=== PATIENT | male | born 2000 | race Caucasian/White ===

== ENCOUNTER 2022-04-28 18:03 | Observation (INO) | payer BC ==
[~2022-04-28 18:03] MED LIST: Iopamidol 300 61% 100 ML VIAL FS ONE
[2022-04-28] MEDS ORDERED: Morphine 4 MG/ML VIAL ONE (18:51)
[2022-04-28] MEDS ORDERED: Ondansetron PF 4 MG/2 ML Vial ONE (18:51)
[2022-04-28 18:53] LABS: #Eosinphils 0.1 10x3/uL (0.0-0.5); #Monocytes 0.4 10x3/uL (0.0-1.1); %Basophils 0.2 % (0.0-2.0); %Eosinophils 0.7 % (0.0-6.0); %Monocytes 2.2 % (0.0-10.0); %Neutrophils 91.6 % (40.0-75.0); Hemoglobin 16.8 g/dL (13.5-17.5); Mean Corpuscular Hemoglobin 30.2 pg (27.0-33.0); Mean Corpuscular Volume 83.8 fl (81.2-95.1); Mean Platelet Volume 9.5 fl (7.4-10.4); Platelet Count 239 10x3/uL (150-450); RBC Distribution Width 12.2 % (11.5-14.5); Red Blood Cell (RBC) Count 5.57 10x6/uL (4.32-5.72); White Blood Cell (WBC) Count 17.5 10x3/uL (3.5-10.5)
[2022-04-28 19:13] LABS: ALT (SGPT) 21 U/L (8-55); AST (SGOT) 16 U/L (10-45); Alkaline Phosphatase 60 U/L (50-130); Anion Gap 19 mmol/L (10-20); BUN (Urea Nitrogen) 19 mg/dL (8.4-21.0); Calc. Creatinine Clearance 0 mL/min (70-130); Calcium 10.7 mg/dL (7.8-10.44); Carbon Dioxide 24 mmol/L (22-29); Chloride 98 mmol/L (98-107); Estimated GFR 68; Globulin 3.1 g/dL (2.4-3.5); Glucose 110 mg/dL (70-105); Potassium 4.1 mmol/L (3.5-5.1); Protein, Total 8.1 g/dL (6.0-8.3); Sodium 137 mmol/L (136-145)
[2022-04-28 19:18] LABS: Bilirubin Neg (Negative); Blood, Urine 10 (Negative); Clarity Clear (Clear); Glucose, Urine (Dipstick) Normal (Negative); Ketone, Urine 5 mg/dL (Negative); Leukocyte 25 (Negative); Nitrite Positive (Negative); Protein, Urine (Dipstick) 30 mg/dl (Neg-Trace); Specific Gravity, Urine 1.025 (1.005-1.030); Urobilinogen Normal mg/dL (Less than 2)
[2022-04-28 19:45] LABS: Bacteria/HPF 3+ HPF (None Seen); Mucous/LPF 3+ LPF (<2+); RBC/HPF 0-3 HPF (0-3); Squamous Epithelial 0-3 HPF (0-3); WBC/HPF 0-3 HPF (0-3)
[2022-04-28] MEDS ORDERED: Piperacillin/Tazobactam 4.5 GM VIAL ONE (21:18)
[2022-04-28 22:03] LABS: SARS-CoV-2 NAA Rapid Test Not Detected (NotDetected)
[2022-04-29 01:20] VITALS: BMI 25.2
[2022-04-29] MEDS ORDERED: Morphine 4 MG/ML VIAL SLOW IVP PRN (02:05)
[2022-04-29] MEDS ORDERED: diphenhydrAMINE 50 MG/ML VIAL IVP PRN (02:05)
[2022-04-29] MEDS ORDERED: Ondansetron ODT 4 MG TAB SL PRN (02:15)
[2022-04-29] MEDS ORDERED: Sodium Chloride 0.9% 1,000 ML IV SCH (02:15)
[2022-04-29] MEDS ORDERED: Ondansetron PF 4 MG/2 ML Vial IVP PRN (02:15)
[2022-04-29 04:48] LABS: #Monocytes 0.3 10x3/uL (0.0-1.1); #Neutrophils 12.9 10x3/uL (1.5-8.4); %Basophils 0.2 % (0.0-2.0); %Eosinophils 0.2 % (0.0-6.0); %Lymphocytes 4.3 % (18.0-47.0); %Monocytes 2.4 % (0.0-10.0); %Neutrophils 92.5 % (40.0-75.0); Hemoglobin 14.7 g/dL (13.5-17.5); Mean Corpuscular HGB CONC 35.3 g/dL (32.0-36.0); Mean Corpuscular Hemoglobin 30.2 pg (27.0-33.0); Mean Corpuscular Volume 85.4 fl (81.2-95.1); Platelet Count 200 10x3/uL (150-450); RBC Distribution Width 12.3 % (11.5-14.5); Red Blood Cell (RBC) Count 4.87 10x6/uL (4.32-5.72); White Blood Cell (WBC) Count 13.9 10x3/uL (3.5-10.5)
[2022-04-29] MEDS ORDERED: Piperacillin/Tazobactam 3.375 GM in Sodium Chloride 0.9% 100 ML IVPB SCH ×2 (06:00→08:45)
[2022-04-29] MEDS ORDERED: EPINEPHrine 1 MG/ML AMP ONE (07:22)
[2022-04-29] MEDS ORDERED: Bupivacaine PF 0.5% 30 ML VIAL ONE (07:23)
[2022-04-29] MEDS ORDERED: PROPOFOL 20 ML ONE (08:20)
[2022-04-29] MEDS ORDERED: Fentanyl 100 MCG/2 ML VIAL ONE (08:21)
[2022-04-29] MEDS ORDERED: Midazolam HCl 2 mg/2 ml Vial ONE (08:21)
[2022-04-29] MEDS ORDERED: Ondansetron PF 4 MG/2 ML Vial ONE (08:23)
[2022-04-29] MEDS ORDERED: Dexamethasone 4 mg/ml Vial ONE (08:23)
[2022-04-29] MEDS ORDERED: Rocuronium Bromide 10 MG/ML (10ML VIAL) ONE (08:23)
[2022-04-29] MEDS ORDERED: HYDROcodone/Acetaminophen 10/325 mg Tablet PO PRN (08:31)
[2022-04-29] MEDS ORDERED: Acetaminophen 325 MG TAB PO PRN (08:31)
[2022-04-29] MEDS ORDERED: Lidocaine 1% PF 5 ML VIAL ONE (08:46)
[2022-04-29] MEDS ORDERED: PHENYLEPHRINE-NS 100 MCG/ML 10 ML SYRINGE ONE (08:46)
[2022-04-29] MEDS ORDERED: Glycopyrrolate 0.2 MG/ML 5 ML SYRINGE ONE (08:56)
[2022-04-29] MEDS: Lactated Ringer's 1,000 ML IV SCH ×2 (10:41→20:58)
[2022-04-29] MEDS: Ketorolac Tromethamine 30 MG/ML VIAL IVP SCH ×2 (10:55→17:41)
[2022-04-29] MEDS: Ondansetron PF 4 MG/2 ML Vial IVP PRN (14:10)
[2022-04-29] MEDS: Piperacillin/Tazobactam 3.375 GM in Sodium Chloride 0.9% 100 ML IVPB SCH ×2 (14:10→20:57)
[2022-04-30] MEDS: Ketorolac Tromethamine 30 MG/ML VIAL IVP SCH ×3 (01:15→11:42)
[2022-04-30] MEDS: Ondansetron PF 4 MG/2 ML Vial IVP PRN ×2 (02:35→10:37)
[2022-04-30 05:35] LABS: Anion Gap 14 mmol/L (10-20); BUN (Urea Nitrogen) 15 mg/dL (8.4-21.0); Calc. Creatinine Clearance 99 mL/min (70-130); Calcium 10.1 mg/dL (7.8-10.44); Carbon Dioxide 27 mmol/L (22-29); Chloride 101 mmol/L (98-107); Estimated GFR 72; Glucose 118 mg/dL (70-105); Sodium 138 mmol/L (136-145)
[2022-04-30 05:40] LABS: #Monocytes 0.4 10x3/uL (0.0-1.1); #Neutrophils 10.6 10x3/uL (1.5-8.4); %Basophils 0.2 % (0.0-2.0); %Eosinophils 0.3 % (0.0-6.0); %Lymphocytes 3.7 % (18.0-47.0); %Monocytes 3.7 % (0.0-10.0); %Neutrophils 91.8 % (40.0-75.0); Hemoglobin 14.7 g/dL (13.5-17.5); Mean Corpuscular HGB CONC 35.5 g/dL (32.0-36.0); Mean Corpuscular Hemoglobin 30.4 pg (27.0-33.0); Mean Corpuscular Volume 85.5 fl (81.2-95.1); Mean Platelet Volume 10.2 fl (7.4-10.4); Platelet Count 231 10x3/uL (150-450); RBC Distribution Width 12.2 % (11.5-14.5); Red Blood Cell (RBC) Count 4.84 10x6/uL (4.32-5.72); White Blood Cell (WBC) Count 11.6 10x3/uL (3.5-10.5)
[2022-04-30] MEDS: Piperacillin/Tazobactam 3.375 GM in Sodium Chloride 0.9% 100 ML IVPB SCH ×2 (05:41→14:24)
[2022-04-30] MEDS: Lactated Ringer's 1,000 ML IV SCH (05:42)
[2022-04-30] MEDS ORDERED: Lactated Ringer's 1,000 ML IV SCH (10:30)
[2022-04-30 15:59] VITALS: BP 119/80; TEMP 99
== END 2022-04-30 17:15 | disposition home or self-care (01) ==
LOC: CSHERS 18:03 → CSHTELE 21:22 → UNDOADMOB 21:22 → CSHTELE 04-29 08:31
PROVIDERS: ADMIT Surgery; ATTEND Surgery
PROC: 0DTJ4ZZ Resection of Appendix, Percutaneous Endoscopic Approach (ICD-10-PCS; principal; 2022-04-29)
DX: K35.80 Unspecified acute appendicitis (principal)
CPT/HCPCS: 36415; 74177; 80048; 80053; 81003; 81015; 83605; 85025; 87077; 87086; 87186; 88304; 94760; 96361; 96365; 96375; 96376; C1776; G0378; J0171; J1100; J1885; J2250; J2270; J2405; J2543; J2704; J3010; J3490; J7050; J7120; Q9967; S0020; U0002